=== PATIENT | female | born 1970 | race African-American/Black ===

== ENCOUNTER 2017-03-12 11:30 | Emergency (ER) | payer OTHER ==
[~2017-03-12] VITALS: Ht 165.1 cm; Wt 147.7 kg
[2017-03-12 11:40] VITALS: BP 168/122; PULSE 79; RESP 18; O2SAT 100
--- NOTE | 2017-03-12 12:17 | ED.REPORT ---
HPI-Neck Pain Free Text HPI Notes Mar 12, 2017 ED Provider: History of Present Illness: 47-year-old female here with neck and head pain. Yesterday she was sitting in a chair at [employer] and she leaned backwards in the back of the chair and arm rests broke. She fell against a glass display of shoes. She did not hit the ground. There were 2 points of impact that hit the display, one in her neck and one in her upper thoracic area. She had no pain immediately after the injury she was up and walking and feeling fine. A few hours later around bedtime she started to feel pain in these areas. It was worse this morning. She took ibuprofen at did not help. She also has a headache. Not on blood thinners. Nursing Notes Stated Complaint: FELL YESTERDAY/NECK AND SHOULDER PAIN Chief Complaint: Head, Face, Neck Trauma Nursing Notes Reviewed: Yes Allergies: Coded Allergies: No Known Allergies (Unverified , 03/12/17) Scheduled PRN Cyclobenzaprine (Cyclobenzaprine) 5 Mg Tablet 5 MG PO TID PRN PRN Spasm General Time Seen by Provider: 12:17 Chief Complaint Headache and neck pain, Neck pain Hx Obtained From: Patient Arrived By: Walk-in Sudden in Onset?: Yes Onset Occurred: Yesterday Symptom Duration: Constant Radiation: : Head occiput Severity: Current: Moderate Severity: Maximum: Moderate Associated with: Reports: Back pain, Head injury Exacerbated by: Turn to right Pertinent Negative: Relieved by nothing Immunizations: All up to date Recent Healthcare: No recent doctor visit Similar Sx Previous: No Past Medical History Past Medical History Notes: Diabetes, hypertension Review of Systems Constitutional: Denies: Chills, Fatigue, Fever Eyes: Denies: Blurred bilateral, Eye pain bilateral, Photophobia, Visual loss bilateral Ears / Nose / Throat: Denies: Sinus problem, Throat pain Respiratory: Denies: Dyspnea on exertion Cardiovascular: Denies: Chest pain GI: Denies: Abdominal pain, Vomiting Musculoskeletal: Reports: Back pain, Neck pain Neurologic: Reports: Headache, Denies: Change LOC, Dizziness, Lightheaded Complete sys rev & neg: except as marked. Physical Exam Initial Vital Signs Vital Signs (First) Date Time Temp Pulse Resp B/P Pulse Ox O2 Delivery O2 Flow Rate FiO2 03/12/17 11:40 36.5 79 18 168/122 100 Room Air Initial VS: Reviewed, Vital signs normal Head / Eyes: Atraumatic, Normocephalic, PERRL ENT: Mucous membranes moist, Conjunctiva normal, No scleral icterus Respiratory: Breath sounds normal, Clear to auscultation, No respiratory distress Cardiovascular: Regular rate & rhythm, Heart sounds normal, Intact distal pulses Abdomen / GI: Soft, Non-tender, No guarding, No rebound, No distention Skin: Warm, Dry, No cyanosis Psychiatric: Mood/affect normal, Behavior normal, Normal thought content General/Constitutional: Awake, Alert Neck: Atraumatic, Supple, No meningismus Decreased range of motion in all directions of her neck. Pain increases the most with turning head to the right. Tenderness noted and generalized around the left right and midline neck as well as upper thoracic area. Pinpoint tenderness noted over her right paracervical musculature. Less pain with palpation over her midline C-spine. Neurologic: Oriented X3, Speech NL, No motor deficits, No sensory deficits, CN II - XII intact, Reflexes equal bilat, Memory NL, Gait NL ENT: Airway patent, Mucous membranes moist, Pharynx NL Re-Eval/Medical Decision Med Decision/Clinical Course Based on mechanism no x-rays are needed. More of her pain is located on the lateral aspect of her neck not midline. Discharge & Departure Primary Impression: Headache Headache type: unspecified Headache chronicity pattern: acute headache Intractability: not intractable Qualified Code: R51 - Headache Additional Impression: Acute neck sprain Encounter type: initial encounter Qualified Code: S13.9XXA - Sprain of joints and ligaments of unspecified parts of neck, initial encounter Patient Instructions: Acute Neck Pain (ED) Additional Instructions: Take ibuprofen 800 mg 3 times a day as needed for pain and swelling. Use muscle relaxer as needed for tension. Cautioned, they do make you drowsy. Return if pain becomes severe. Otherwise frequent position changes, gentle range of motion as tolerated. Follow up with her PCP for a physical therapy referral as discussed. EDSupervising Provider for [facility]: Jayden Beal MD, Linnea K ARNP Mar 12, 2017 12:17
[2017-03-12] MEDS ORDERED: CYCL5TAB PO (12:39)
[2017-03-12 13:40] VITALS: BP 168/106; PULSE 72; RESP 20; O2SAT 98
== END 2017-03-12 12:57 | disposition home or self-care (01) ==
LOC: SED 11:30
DX: S13.9XXA Sprain of joints and ligaments of unspecified parts of neck, initial encounter (principal); R51 Headache; W22.8XXA Striking against or struck by other objects, initial encounter; Y93.89 Activity, other specified; Y92.513 Shop (commercial) as the place of occurrence of the external cause; Y99.8 Other external cause status; I10 Essential (primary) hypertension; E11.9 Type 2 diabetes mellitus without complications